=== PATIENT | female | born 1955 | race Caucasian/White ===

== ENCOUNTER → 2018-03-21 | Outpatient (CLI) | payer OTHER ==
[~2018-03-21] MED LIST: AMLO5 PO; ASPI81CH PO; LISI20 PO; Multivitamin1 EAC1 PO; ZESTORETIC 20-121 EA PO
== END ==
LOC: LAB 15:13 → LAB SHORT 15:13
DX: N89.8 Other specified noninflammatory disorders of vagina (principal)
CPT/HCPCS: 87070; 87077; 87205

== ENCOUNTER 2024-05-09 17:06 | Observation (INO) | payer MEDICARE, OTHER ==
[~2024-05-09] VITALS: Ht 165.1 cm; Wt 91.5 kg
[2024-05-09 18:08] LABS: BASOPHILS ABSOLUTE AUTO 0.02 K/mm3 (0.00-0.23); BASOPHILS PERCENT AUTO 0 % (0-2); EOSINOPHILS ABSOLUTE AUTO 0.07 K/mm3 (0.00-0.68); EOSINOPHILS PERCENT AUTO 1 % (0-6); Hematocrit 37.2 % (33.0-51.0); Hemoglobin 12.6 g/dL (11.5-16.0); IMMATURE GRAN ABSOLUTE AUTO 0.01 K/mm3 (0.00-0.10); IMMATURE GRAN PERCENT AUTO 0 % (0-1); LYMPHOCYTES ABSOLUTE AUTO 2.11 K/mm3 (0.84-5.20); LYMPHOCYTES PERCENT AUTO 35 % (21-46); MONOCYTES ABSOLUTE AUTO 0.53 K/mm3 (0.16-1.47); MONOCYTES PERCENT AUTO 9 % (4-13); Mean Corpuscular HGB 30.8 pg (26.0-34.0); Mean Corpuscular HGB Conc 33.9 g/dL (31.5-36.5); Mean Corpuscular Volume 91 fL (80-100); Mean Platelet Volume 11.1 fL (9.1-12.4); NEUTROPHILS ABSOLUTE AUTO 3.25 K/mm3 (1.96-9.15); NEUTROPHILS PERCENT AUTO 54 % (41-73); Platelet Count 191 K/mm3 (150-400); RDW Standard Deviation 47.2 fL (35.1-46.3); Red Blood Cell Count 4.09 M/mm3 (3.80-5.20); White Blood Cell Count 5.99 K/mm3 (4.00-11.30)
[2024-05-09 18:30] LABS: Alanine Aminotransfer (ALT/SGP 24 U/L (12-78); Albumin, Blood 3.2 g/dL (3.4-5.0); Alk Phos 100 U/L (50-136); Anion Gap 7 mmol/L (3-11); Aspartate Aminotrans (AST/SGOT 18 U/L (12-37); Bilirubin, Total 0.4 mg/dL (0.1-1.0); Blood Urea Nitrogen 19 mg/dL (8-24); Bun/Creatinine Ratio 24.9 (12.0-20.0); CO2, Blood 28 mmol/L (21-32); Calcium, Blood 8.8 mg/dL (8.5-10.1); Chloride, Blood 109 mmol/L (98-108); Creatinine, Blood 0.76 mg/dL (0.40-1.00); Ethanol (Alcohol), Blood, Med <3 mg/dL; Globulin, Blood 3.1 g/dL (2.2-4.0); Glomerular Filtration Rate 86 (60-); Glucose, Blood 175 mg/dL (70-99); Potassium, Blood 3.2 mmol/L (3.5-5.5); Sodium, Blood 141 mmol/L (136-145); Total Protein, Blood 6.3 g/dL (6.4-8.2)
[2024-05-09 19:07] LABS: U Amphetamine Screen Not Detected; U Barbituate Screen Not Detected; U Benzodiazapine Screen Not Detected; U Buprenorphine Screen Not Detected; U Cannabinoids Screen Not Detected; U Cocaine Screen Not Detected; U Methadone Screen Not Detected; U Methamphetamine Screen Not Detected; U Opiates Screen Not Detected; U Oxycodone Screen Not Detected; U Phencyclidine Screen Not Detected
[2024-05-09 19:21] LABS: Source, Urine Clean Catch
[2024-05-09 19:22] LABS: Appearance, Urine Clear (Clear); Bilirubin, Urine Neg (Neg); Blood, Urine Neg (Neg); Color, Urine Yellow (P-Yellow); Glucose Qualitative, Urine Neg (Neg); Ketones, Urine Neg (Neg); Leukocyte Esterase, Urine 3+ (Neg); Nitrite, Urine Neg (Neg); Protein, Urine Neg (Neg); Specific Gravity, Urine 1.015 (1.003-1.022); Urobilinogen, Urine NORM (Normal)
[2024-05-09 19:33] LABS: Bacteria Few /hpf; Red Blood Cells, Urine 0-2 /hpf (0-2); Squamous Epithelial Cells Few /hpf (Few)
[2024-05-09] MEDS ORDERED: CefTRIAXone Sodium 1,000 MG in NS 100 ML IV ONE (19:35)
[2024-05-09] MEDS ORDERED: HydrALAZINE HCl 20 MG / ML 1ML Vial IV PRN (20:40)
[2024-05-09] MEDS ORDERED: Potassium Chloride 40 MEQ in NS 250 ML IV STA (20:59)
[2024-05-09] MEDS ORDERED: NS 1,000 ML IV ONE (21:28)
[2024-05-09 22:24] VITALS: BP 154/75
[2024-05-09] MEDS ORDERED: LISI20 PO (22:38)
[2024-05-10 02:57] VITALS: BP 155/73
[2024-05-10 04:50] LABS: Hematocrit 36.5 % (33.0-51.0); Hemoglobin 12.3 g/dL (11.5-16.0); Mean Corpuscular HGB 30.3 pg (26.0-34.0); Mean Corpuscular HGB Conc 33.7 g/dL (31.5-36.5); Mean Corpuscular Volume 90 fL (80-100); Mean Platelet Volume 10.9 fL (9.1-12.4); Platelet Count 169 K/mm3 (150-400); RDW Coefficient Variation 13.8 % (11.7-14.2); RDW Standard Deviation 45.8 fL (35.1-46.3); Red Blood Cell Count 4.06 M/mm3 (3.80-5.20); White Blood Cell Count 4.97 K/mm3 (4.00-11.30)
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
[2024-05-10 05:19] LABS: Bun/Creatinine Ratio 20.4 (12.0-20.0); Calcium, Blood 8.4 mg/dL (8.5-10.1); Creatinine, Blood 0.59 mg/dL (0.40-1.00); Potassium, Blood 3.2 mmol/L (3.5-5.5)
[2024-05-10] MEDS ORDERED: Potassium Chloride 20 MEQ TabCR PO ONE (07:00)
[2024-05-10 07:12] VITALS: BP 182/85
[2024-05-10] MEDS ORDERED: Aspirin 81 MG Chew PO SCH (09:00)
[2024-05-10] MEDS ORDERED: Lisinopril 20 MG Tab PO SCH (09:00)
[2024-05-10] MEDS ORDERED: Enoxaparin 40 MG/0.4 ML SYR SC SCH (09:00)
[2024-05-10 15:34] VITALS: BP 159/85
[2024-05-10] MEDS ORDERED: ALPRAZolam 0.5 MG Tab PO PRN (16:35)
--- NOTE | 2024-05-10 18:37 | NUR ---
SHIFT SUMMARY: A&O X1-2. PATIENT VERY FORGETFUL, REQUIRING REORIENTING EVERY 2-3 MINUTES. PATIENT WANDERING HALLWAYS AND FOLLOWING NURSE INTO OTHER PATIENTS ROOM. PATIENT CONTINUES TO BE ANXIOUS AND STATES SHE IS WORRIED ABOUT HOW SHE WILL DRIVE HOME. PATIENT TREATED FOR ANXIETY PER EMAR. PATIENT REDIRECTED TO HER ROOM AND SHOWN USE OF CALL LIGHT. CALL LIGHT WITHIN REACH. PATIENT INDEPENDENT IN ROOM. ABX SWITCHED TO ORAL. BED IN LOW POSITION.
[2024-05-10 19:25] VITALS: BP 151/67
[2024-05-10] MEDS ORDERED: HydrOXYzine Pamoate 50 MG Cap PO SCH (20:00)
[2024-05-10] MEDS ORDERED: CefTRIAXone Sodium 1,000 MG in NS 100 ML IV SCH (21:00)
[2024-05-10] MEDS ORDERED: Cefdinir 300 MG Cap PO SCH (21:00)
[2024-05-11 05:52] LABS: BASOPHILS ABSOLUTE AUTO 0.03 K/mm3 (0.00-0.23); BASOPHILS PERCENT AUTO 1 % (0-2); EOSINOPHILS ABSOLUTE AUTO 0.12 K/mm3 (0.00-0.68); EOSINOPHILS PERCENT AUTO 2 % (0-6); Hematocrit 41.1 % (33.0-51.0); Hemoglobin 13.6 g/dL (11.5-16.0); IMMATURE GRAN PERCENT AUTO 0 % (0-1); LYMPHOCYTES ABSOLUTE AUTO 2.22 K/mm3 (0.84-5.20); LYMPHOCYTES PERCENT AUTO 45 % (21-46); MONOCYTES ABSOLUTE AUTO 0.45 K/mm3 (0.16-1.47); MONOCYTES PERCENT AUTO 9 % (4-13); Mean Corpuscular HGB 30.2 pg (26.0-34.0); Mean Corpuscular HGB Conc 33.1 g/dL (31.5-36.5); Mean Corpuscular Volume 91 fL (80-100); NEUTROPHILS PERCENT AUTO 43 % (41-73); Platelet Count 172 K/mm3 (150-400); RDW Coefficient Variation 13.8 % (11.7-14.2); RDW Standard Deviation 46.7 fL (35.1-46.3); Red Blood Cell Count 4.51 M/mm3 (3.80-5.20); White Blood Cell Count 4.92 K/mm3 (4.00-11.30)
[2024-05-11 06:10] LABS: Bun/Creatinine Ratio 18.7 (12.0-20.0); Calcium, Blood 9.6 mg/dL (8.5-10.1); Creatinine, Blood 0.69 mg/dL (0.40-1.00); Potassium, Blood 3.4 mmol/L (3.5-5.5)
--- NOTE | 2024-05-11 06:19 | NUR ---
NO ACUTE CHANGES DURING SHIFT. PT ORIENTED TO SELF, VERY FORGETFUL, WILL FORGET CONVERSATION WITHIN A MATTER OF MINUTES. ONCE ASLEEP PT SLEPT THROUGHOUT SHIFT.
[2024-05-11 07:24] VITALS: BP 179/92
[2024-05-11] MEDS ORDERED: Potassium Chloride 20 MEQ TabCR PO ONE (08:09)
[2024-05-11 10:13] VITALS: BP 140/72
[2024-05-11 15:20] VITALS: BP 156/88
--- NOTE | 2024-05-11 15:56 | NUR ---
SHIFT SUMMARY PT AWAKE AT START OF SHIFT, DURING SHIFT REPORT. INDEPENDENT IN RM AND TO BTHRM. PT IS VERY CONFUSED AND FORGETFUL; LITTLE TO NO SHORT TERM MEMORY. PT ASKS THE SAME QUESTIONS OVER AND OVER, HOUR AFTER HOUR. FAMILY IN TO VISIT, SPENDING A LONG TIME WITH PT. NO S/SX OF DISTRESS NOTED OR REPORTED. PT WAITING PLACEMENT ON MONDAY, DUE TO HOLIDAY WEEKEND. CALL LT IN REACH.
[2024-05-11 19:53] VITALS: BP 148/72
--- NOTE | 2024-05-12 04:56 | NUR ---
PT ALERT TO SELF. PT ANXIOUS AND WONDERED THE HALLWAY TALKING TO STAFF ABOUT HOW TO GET TO HER CARE AND WANTING TO GET HOME BEFORE DARK. PT ALSO THOUGHT SHE WAS AT A STORE AND HERE FOR A JOB INTERVIEW. PT DID STATE THAT SHE KNOWS SHE HAS DEMENTIA AND CAN BE FORGETFUL. PT WAS ABLE TO REST IN BED MOST OF THE NIGHT. NO ACUTE CHANGES. BED IN LOWEST POSITION AND CALL LIGHT IN REACH.
[2024-05-12 05:24] LABS: Bun/Creatinine Ratio 29.5 (12.0-20.0); Calcium, Blood 9.9 mg/dL (8.5-10.1); Creatinine, Blood 0.71 mg/dL (0.40-1.00); Potassium, Blood 3.5 mmol/L (3.5-5.5)
[2024-05-12 06:22] VITALS: BP 188/77
[2024-05-12 07:29] VITALS: BP 150/74
[2024-05-12] MEDS ORDERED: Lisinopril 20 MG Tab PO SCH (09:00)
[2024-05-12 16:37] VITALS: BP 141/69
--- NOTE | 2024-05-12 18:35 | NUR ---
PT ALERT TO SELF. PT ANXIOUS AND WANDERING IN THE HALLWAY TALKING TO STAFF ABOUT WHEN SHE WILL BE LEAVING/ PT DID STATE THAT SHE KNOWS SHE HAS DEMENTIA AND CAN BE FORGETFUL. PT DID NOT REST MUCH T/O SHIFT. NO ACUTE CHANGES. BED IN LOWEST POSITION AND CALL LIGHT IN REACH.
[2024-05-12 19:44] VITALS: BP 161/73
[2024-05-13 03:53] VITALS: BP 148/62
--- NOTE | 2024-05-13 04:37 | NUR ---
SHIFT SUMMARY: PATIENT IS PLEASANTLY CONFUSED UPON WAKING TO GO TO THE BATHROOM. PATIENT WAS EASILY REDIRECTED TO HER BATHROOM. VSS, NO REPORTS OF PAIN OR DISCOMFORT.
[2024-05-13 06:10] LABS: Bun/Creatinine Ratio 27.9 (12.0-20.0); Calcium, Blood 9.3 mg/dL (8.5-10.1); Creatinine, Blood 0.75 mg/dL (0.40-1.00); Potassium, Blood 3.6 mmol/L (3.5-5.5)
[2024-05-13 07:20] VITALS: BP 138/54
[2024-05-13 14:57] VITALS: BP 130/58
--- NOTE | 2024-05-13 16:02 | NUR ---
SHIFT SUMMARY PATIENT A&O TO SELF. DENIES ANY CP/PRESSURE, HEADACHE, DIZZINESS, OR SOB. LSCTA. NO PAIN REPORTED. PATIENT NOTED TO BE ANXIOUS THIS MORNING, BU REDIRECTABLE AND PLEASANT. THE DAY PROGRESSED, PATIENT HAS BECOME MORE ANXIOUS, FRUSTRATED ABOUT HER CONFUSION. PT ACKNOWLEDGED THAT SHE HAS DEMENTIA. XANAX GIVEN PER PROTOCOL. NO ACUTE CHANGES THIS SHIFT. PLAN [facility] FOR [facility] 05/[facility]. PATIENT CURRENTLY VISITING WITH HER GUARDIAN. BED IN THE LOWEST POSITION. CALL LIGHT WITHIN REACH.
[2024-05-13 19:37] VITALS: BP 173/92
[2024-05-14 03:34] VITALS: BP 123/53
--- NOTE | 2024-05-14 04:56 | NUR ---
SHIFT SUMMARY: PATIENT WAS ANXIOUS BEFORE GOING TO BED, OBSESSING ABOUT HOW SHE IS GOING TO FIND HER CAR TO GO HOME. SCHEDULED VISTARIL WAS GIVEN WITH GOOD EFFECT. A LARGE HIVE WITH LIGHT RASH WAS OBSERVED. ICE PACK WAS GIVEN WHICH PATIENT REPORTED RELIEVED THE ITCHING.
[2024-05-14] MEDS ORDERED: DiphenhydrAMINE HCL 25 MG Cap PO ONE (06:25)
[2024-05-14 06:28] LABS: Bun/Creatinine Ratio 23.4 (12.0-20.0); Calcium, Blood 9.2 mg/dL (8.5-10.1); Creatinine, Blood 0.85 mg/dL (0.40-1.00); Potassium, Blood 3.7 mmol/L (3.5-5.5)
[2024-05-14 07:21] VITALS: BP 150/76
[2024-05-14 15:03] VITALS: BP 135/70
--- NOTE | 2024-05-14 18:10 | NUR ---
SHIFT SUMMARY PT AOX4, CONFUSED AND NEEDS TO BE REORIENTED OFTEN. ASKS THE SAME QUESTIONS OFTEN, ANXIOUS AT TIMES. INDEPENDENT IN THE ROOM. NO ACUTE ISSUES THIS SHIFT. RASH TO L AC, PROVIDER AWARE AND WANTS TO CONTINUE VISTARIL. PT WALKS IN AND OUT OF THE ROOM OFTEN. PLAN IS TO DC TO [facility] TOM[facility]. POLST MUST BE SIGNED PRIOR TO DISCHARGE. THE POLST IS OUTSIDE OF THE ROOM FOR THE PROVIDER. CALL LIGHT WITHIN REACH, BED LOCKED AND IN THE LOWEST POSITION. PT REPOSITIONS HERSELF IN BED. WILL REPORT TO ONCOMING NURSE.
[2024-05-14 20:29] VITALS: BP 155/75
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
[2024-05-15 02:23] VITALS: BP 141/68
--- NOTE | 2024-05-15 05:43 | NUR ---
SHIFT SUMMARY: PATIENT WAS ABLE TO GET A GOOD NIGHTS SLEEP. VSS.
[2024-05-15 06:40] LABS: Bun/Creatinine Ratio 28.6 (12.0-20.0); Creatinine, Blood 0.7 mg/dL (0.40-1.00); Potassium, Blood 3.5 mmol/L (3.5-5.5)
[2024-05-15 07:34] VITALS: BP 144/74
[2024-05-15] MEDS ORDERED: DiphenhydrAMINE HCL 25 MG Cap PO PRN (09:45)
[2024-05-15] MEDS ORDERED: Triamcinolone Acet 0.1% Ointment 15 GM TOP SCH (10:00)
[2024-05-15] MEDS ORDERED: BENADRYL25 MG PO (12:17)
[2024-05-15] MEDS ORDERED: FAMO20 PO (12:18)
[2024-05-15] MEDS ORDERED: HYDHCL25 PO (12:18)
[2024-05-15] MEDS ORDERED: Triamcinolone A15 G3 TOP (12:19)
--- NOTE | 2024-05-15 13:38 | NUR ---
DISCHARGE NOTE PT DISCHARGED TO [facility], PICKED UP BY HER GUARDIAN. NO IV PRESENT UPON DISCHARGE. DISCHARGE INFORMATION, MEDICATIONS, AND EDUCATION FAXED TO THE FACILITY PRIOR. THE SAME INFORMATION ALSO PROVIDED TO THE GUARDIAN. PERSONAL BELONGINGS RETURNED TO THE PT.
[2024-05-15] MEDS ORDERED: HydrOXYzine Pamoate 25 MG Cap PO SCH (14:00)
[2024-05-15] MEDS ORDERED: Famotidine 20 MG Tab PO SCH (16:30)
== END 2024-05-15 13:39 | disposition home or self-care (01) ==
LOC: ER 17:06 → MEDS 20:34
PROVIDERS: Family Medicine; Student in an Organized Health Care Education/Training Program; ADMIT Internal Medicine
DX: F03.90 Unspecified dementia, unspecified severity, without behavioral disturbance, psychotic disturbance, mood disturbance, and anxiety (principal); N39.0 Urinary tract infection, site not specified; E87.6 Hypokalemia; I10 Essential (primary) hypertension; Z79.82 Long term (current) use of aspirin; Z79.899 Other long term (current) drug therapy
CPT/HCPCS: 36415; 70450; 71045; 80048; 80053; 80320; 81001; 84484; 85025; 85027; 87086; 93005; 93010; 96365; 96367; 96372; 96375; 96376; 99285-25; A9270; G0378; J0360; J0696; J1650; J3480; J7030; J7050

== ENCOUNTER 2025-06-05 11:16 | Day surgery (SDC) | payer OTHER ==
[~2025-06-05] VITALS: Ht 165.1 cm; Wt 89.7 kg
[~2025-06-05 11:16] MED LIST changes: +BENADRYL25 MG PO; +Balanced Salt Epinephrine Irrigation Solution 500 mL IR SCH; +FAMO20 PO; +HYDHCL25 PO; +Moxifloxacin HCL 0.5 MG/0.1 ML 0.4MLSYR LEFTEYE SCH; +PHENYLEPHRINE\\TROPICAMIDE\\TETRACAINE OPHTHALMIC DILATING SOLN LEFTEYE PRN; +Povidone-Iodine 450 DROP/30 ML Solution LEFTEYE SCH; +Povidone-Iodine 450 DROP/30 ML Solution ONE; +Tetracaine HCl/Pf 0.5% Opth Soln 4 ml ONE; +Triamcinolone A15 G3 TOP; +Triamcinolone Inj Susp 40 MG / ML 1ML Vial INJ SCH; +Triamcinolone Inj Susp 40 MG / ML 1ML Vial ONE
--- NOTE | 2025-06-05 11:49 | NUR ---
06/05/25 114[address] Carmela More PER V[address] DR DEMARCO, PT TO BE ORAL SEDATION. ORDERS FOR VALIUM 10MG PO GIVEN. PT REPORTED ANXIETY LEVEL AT 0/10 PRIOR TO ADMINISTRATION OF VALIUM 10MG PO @ 1135. TETRACAINE IN AT 1138. PLEDGETT IN AT 1140. PT HAS DEMENTIA AND LIVES IN [facility]. SHE IS ACCOMPANIED BY HER CAREGIVER TAMARA. ENDY BREWER CALLED [facility] AND RECEIVED MEDICATION REVIEW VERBALLY FROM STAFF AT [facility] AND MEDICATION LIST UPDATED TO REFLECT THIS.
--- NOTE | 2025-06-05 12:18 | NUR ---
06/05/25 1218 Aimee Polanco 1208 BP:118/62 HR:57 O2:99% RESP:16
[2025-06-05 12:58] VITALS: BP 123/84
[2025-06-05] MEDS ORDERED: Crestor40 MG PO (14:39)
[2025-06-05] MEDS ORDERED: POTA10T PO (14:40)
== END 2025-06-05 12:45 | disposition home or self-care (01) ==
LOC: ORSCSDS 11:16
PROVIDERS: Ophthalmology
PROC: 08RK3JZ Replacement of Left Lens with Synthetic Substitute, Percutaneous Approach (ICD-10-PCS; principal; 2025-06-05 12:30)
DX: H25.812 Combined forms of age-related cataract, left eye (principal); I10 Essential (primary) hypertension; F03.90 Unspecified dementia, unspecified severity, without behavioral disturbance, psychotic disturbance, mood disturbance, and anxiety; Z79.82 Long term (current) use of aspirin; Z79.899 Other long term (current) drug therapy
CPT/HCPCS: A9270; J3301; V2632

== ENCOUNTER 2025-06-12 10:42 | Day surgery (SDC) | payer OTHER ==
[~2025-06-12] VITALS: Ht 167.6 cm; Wt 89.9 kg
[~2025-06-12 10:42] MED LIST changes: +Crestor40 MG PO; -Moxifloxacin HCL 0.5 MG/0.1 ML 0.4MLSYR LEFTEYE SCH; +Moxifloxacin HCL 0.5 MG/0.1 ML 0.4MLSYR RIGHTEYE SCH; +NS 500 ML IV ONE; -PHENYLEPHRINE\\TROPICAMIDE\\TETRACAINE OPHTHALMIC DILATING SOLN LEFTEYE PRN; +PHENYLEPHRINE\\TROPICAMIDE\\TETRACAINE OPHTHALMIC DILATING SOLN RIGHTEYE PRN; +POTA10T PO; -Povidone-Iodine 450 DROP/30 ML Solution LEFTEYE SCH; +Povidone-Iodine 450 DROP/30 ML Solution RIGHTEYE SCH
[2025-06-12] MEDS ORDERED: LISINOPRIL-HCT1 EAC1 PO (11:48)
[2025-06-12] MEDS ORDERED: FentaNYL Citrate 50 MCG/ML 2 ML Injection ONE (11:51)
[2025-06-12] MEDS ORDERED: Midazolam HCl 1MG / ML 2ML Vial ONE (11:51)
[2025-06-12] MEDS ORDERED: NS 500 ML IV ONE (11:58)
[2025-06-12] MEDS ORDERED: Tetracaine HCl 0.5% Opth Soln 15 ml RIGHTEYE ONE (12:02)
[2025-06-12 12:50] VITALS: BP 124/66
== END 2025-06-12 12:46 | disposition home or self-care (01) ==
LOC: ORSCSDS 10:42
PROVIDERS: Ophthalmology
PROC: 08RJ3JZ Replacement of Right Lens with Synthetic Substitute, Percutaneous Approach (ICD-10-PCS; principal; 2025-06-12 12:30)
DX: H25.811 Combined forms of age-related cataract, right eye (principal); Z96.1 Presence of intraocular lens; I10 Essential (primary) hypertension; F03.90 Unspecified dementia, unspecified severity, without behavioral disturbance, psychotic disturbance, mood disturbance, and anxiety; Z79.82 Long term (current) use of aspirin; Z79.899 Other long term (current) drug therapy
CPT/HCPCS: J2250; J3010; J3301; J7040; V2632